=== PATIENT | male | born 1945 | race Caucasian/White ===

== ENCOUNTER → 2023-07-09 | Day surgery (SDC) | payer OTHER ==
[~2023-07-09] MED LIST: ACYCLOVIR200 MG PO; ASPIRIN81 MG PO; ATORVASTATIN CA20 MG PO; DICLOFENAC POTA25 M1 PO; FLOMAX0.4 MG PO; FLOVENT DISKUS50 MCG; LACTATED RINGER'S 1,000 ML ONE; LIDOCAINE HCL 2% LOCAL INJ 5 ML SDV VIAL INJ ONE; METFORMIN HCL500 MG PO; MULTI-VITAMIN1 EACH PO; NIFEDIPINE10 MG PO; PROPOFOL IV EMULSION 10 MG/ML 20 ML VIAL ONE; PROTONIX20 MG PO
[2023-07-09 08:40] LABS: BASOPHILS % 0.5 % (0.0-1.0); EOSINOPHILS # (AUTO) 0.1 (0.0-0.4); EOSINOPHILS % 1.7 % (0.0-6.0); HEMATOCRIT 38.8 % (38.2-49.6); HEMOGLOBIN 13.3 g/dL (14.0-18.0); LYMPHOCYTES # (AUTO) 2.1 (1.0-3.2); LYMPHOCYTES % 26.4 % (18.0-39.1); MEAN CORPUSCULAR HEMOGLOBIN 32.9 pg (28-32); MEAN CORPUSCULAR HGB CONC 34.3 g/dL (31-35); MONOCYTES # (AUTO) 0.6 (0.2-0.8); MONOCYTES % 7.3 % (4.4-11.3); PLATELET COUNT 323 x10e3/uL (140-360); RED BLOOD COUNT 4.04 x10e6/uL (4.3-5.7); RED CELL DISTRIBUTION WIDTH 12.4 % (11.7-14.4); WHITE BLOOD COUNT 7.81 x10e3/uL (4.8-10.8)
[2023-07-09 09:52] VITALS: TEMP 97.2
[2023-07-09 10:20] VITALS: BP 130/87; PULSE 68; RESP 16; O2SAT 96
== END | disposition home or self-care (01) ==
LOC: OR 07:43
PROVIDERS: ATTEND Internal Medicine Gastroenterology
DX: K29.50 Unspecified chronic gastritis without bleeding (principal); D12.4 Benign neoplasm of descending colon; K31.7 Polyp of stomach and duodenum; K63.89 Other specified diseases of intestine; K44.9 Diaphragmatic hernia without obstruction or gangrene; K64.8 Other hemorrhoids; E11.9 Type 2 diabetes mellitus without complications; I10 Essential (primary) hypertension; E78.5 Hyperlipidemia, unspecified; J44.9 Chronic obstructive pulmonary disease, unspecified; G30.9 Alzheimer's disease, unspecified; F02.80 Dementia in other diseases classified elsewhere, unspecified severity, without behavioral disturbance, psychotic disturbance, mood disturbance, and anxiety; I49.3 Ventricular premature depolarization; Z88.0 Allergy status to penicillin; Z88.2 Allergy status to sulfonamides; Z79.82 Long term (current) use of aspirin; Z79.84 Long term (current) use of oral hypoglycemic drugs; Z79.899 Other long term (current) drug therapy
CPT/HCPCS: 36415; 43239; 45380; 45385; 82948; 85025; 88305; 88342; 93005; J2001; J2704; J7121; 45378